=== PATIENT | male | born 1970 | race Caucasian/White ===

== ENCOUNTER → 2021-02-07 13:10 | Outpatient (CLI) | payer OTHER, SELFPAY ==
[2021-02-07 16:25] LABS: COVID19 -Nasal RAPID Negative (Negative)
== END ==
PROVIDERS: Referring Provider Nurse Practitioner Family; Visit Provider Nurse Practitioner Family
DX: Z20.822 Contact with and (suspected) exposure to COVID-19 (principal); Z01.812 Encounter for preprocedural laboratory examination
CPT/HCPCS: 87635

== ENCOUNTER → 2021-02-08 07:56 | Day surgery (SDC) | payer OTHER, SELFPAY ==
[2021-02-08 08:11] VITALS: BP 130/88; PULSE 77; RESP 16; TEMP 36.8; O2SAT 99; BMI 28.7
[2021-02-08] MEDS: SODIUM CHLORIDE 0.9% 1,000 ML 100 ML IV (08:20)
--- NOTE | 2021-02-08 08:44 | PM.HP.1 ---
History of Present Illness History of Present Illness Date Patient Seen: 02/08/21 Time Patient Seen: 08:44 Chief complaint: SDC Narrative: Here for screening colonoscopy. I reviewed Dr. Boucher's note from November 09 of this year Patient History Family & Social History Social History: household members spouse Tobacco & Substance use: Smoking Status Never smoker alcohol intake current alcohol intake frequency a few times a month Substance Use Type does not use Meds Home Medications and Allergies Home Medications Medication Instructions Recorded Confirmed Type lovastatin 40 mg tablet 40 mg PO DAILY 02/08/21 02/08/21 History Allergies Allergy/AdvReac Type Severity Reaction Status Date / Time No Known Drug Allergies Allergy Verified 02/08/21 07:48 Review of Systems Review of Systems ROS: Yes All systems reviewed with the patient and are negative except as otherwise documented Exam Vital Signs (past 8 hours): - 02/08/21 08:11 Temperature 98.3 F Pulse Rate 77 Respiratory Rate 16 Blood Pressure 130/88 Pulse Oximetry 99 Oxygen Delivery Method Room Air Const General: cooperative and comfortable Orientation: alert HENMT Head: normocephalic Ears: external ears normal Nose: external nose normal Face and sinus: normal facial exam Mouth: oral mucosae normal Eyes General: appearance normal, both eyes and all related structures Neck Neck: normal visual inspection Chest Chest: normal inspection of the chest Resp Effort & Inspection: normal respiratory effort Auscultation: clear to auscultation bilaterally Cardio Rate: regular rate Rhythm: regular rhythm Heart Sounds: no murmurs GI Inspection: normal to inspection Palpation: soft and No tender Auscultation: normal bowel sounds Skin General: no rashes or lesions noted and No jaundice Neuro General: patient alert and moves all extremities Cognition: normal cognition Speech: speech normal Extrem General: no pedal edema Psych Appearance: grossly normal Assessment & Plan Assessment & Plan narrative: 50-year-old male indicated for colon cancer screening. Colonoscopy is pursued today. Time Spent With Patient Critical Care time: I spent a total of [] minutes of critical care time on this patient's care today; this time is exclusive of procedural time.
--- NOTE | 2021-02-08 08:46 | PM.PREOP ---
Pre-operative Note COVID-19 COVID-19 status: Negative Result date/Date tested (Pos, Neg/Pending): 02/07/21 Interval Note History & Physical reviewed/Exam performed by Physician: Yes Changes to H&P: No ASA Class (for procedural sedation): I
[2021-02-08 09:53] VITALS: BP 121/85; PULSE 66; RESP 12; TEMP 36.6; O2SAT 99
--- NOTE | 2021-02-08 09:53 | P.OP.ENDO_ITS ---
Operative Date/Time/Diagnoses Date of procedure: 02/08/21 Pre-op diagnosis: Colon cancer screening Post-op diagnosis: same Procedure & Clinicians Study performed: Colonoscopy Same procedure as scheduled: Yes Indications: Colon cancer screening Surgeon: Oseas Pete Procedure Notes SCOAP/Timeout: Done Procedure in detail: After the risks and benefits were explained, written and verbal informed consent was obtained. The patient was brought into the procedure room and placed into the left lateral decubitus position. See nurse contact finger assembler notes for sedation details. Digital rectal examination was accomplished. The scope was introduced into the patient and advanced under direct visualization to the cecum as identified by the appendiceal orifice and ileocecal valve. The scope was slowly withdrawn to carefully examine the mucosa for any defects or lesions. Comprehensive imaging was accomplished throughout the rectum including the dentate line. The colon was decompressed, the scope was then removed from the patient who tolerated the procedure well. Bowel prep fair at 1st. This was rendered adequate with copious irrigation and suction. Adult colonoscope Scope withdrawal time: 7 minutes Sedation minutes: 23 Specimen(s): none sent Complications: none Impression: Patient had a fairly tortuous left colon especially at the splenic flexure. Grade 1 to grade 2 internal nonbleeding nonthrombosed hemorrhoids were noted. Otherwise no significant colonic mucosal pathology identified throughout. Endoscopic diagnosis 1. Grade 1-2 internal hemorrhoids 2. Otherwise visually unremarkable colonoscopy to cecum Post-procedure Recommendations: Colonscopy in 10 years Plan for aftercare: Repeat colonoscopy 10 years time sooner should symptoms warrant an earlier exam. Disposition: PACU
[2021-02-08 10:03] VITALS: BP 124/91; PULSE 77; RESP 12; TEMP 36.6; O2SAT 100
[2021-02-08 10:05] VITALS: BP 131/84; PULSE 70; RESP 12; O2SAT 99
[2021-02-08 10:11] VITALS: BP 116/65; PULSE 67; RESP 12; TEMP 36.6; O2SAT 100
== END | disposition home or self-care (01) ==
PROVIDERS: PCP Family Medicine; Referring Provider Internal Medicine Gastroenterology; Visit Provider Internal Medicine Gastroenterology
PROC: 0DJD8ZZ Inspection of Lower Intestinal Tract, Via Natural or Artificial Opening Endoscopic (ICD-10-PCS; CPT 45378; principal; 2021-02-08 09:00)
DX: Z12.11 Encounter for screening for malignant neoplasm of colon (principal); K64.1 Second degree hemorrhoids
CPT/HCPCS: 45378; J2405; J2704